=== PATIENT | female | born 1975 | race Caucasian/White ===

== ENCOUNTER → 2021-01-25 08:42 | Outpatient (CLI) | payer OTHER, SELFPAY ==
--- NOTE | 2021-01-25 09:44 | MRI_ITS ---
EXAM: MR Cervical Spine Without Intravenous Contrast CLINICAL INDICATION: 45 years old, Female; pain, disc degen TECHNIQUE: Multiplanar and multisequence MR images of the cervical spine without intravenous contrast were performed. This report was created using Osmopure report Mo-DV technology. COMPARISON: None. FINDINGS: Vertebrae: Unremarkable. Normal vertebral bodies and posterior elements. Normal alignment. Normal craniocervical junction and cervicothoracic junction. No spondylolisthesis. There is preservation of the normal cervical lordosis. Spinal cord: Unremarkable in signal and morphology. Soft tissues: Unremarkable. No prevertebral soft tissue swelling. Lymph nodes: Unremarkable. There is no cervical adenopathy. DISCS/SPINAL CANAL/NEURAL FORAMINA: C2-C3: Unremarkable. Normal disc height and morphology. Normal spinal canal and neuroforamina. C3-C4: Unremarkable. Normal disc height and morphology. Normal spinal canal and neuroforamina. C4-C5: Unremarkable. Normal disc height and morphology. Normal spinal canal and neuroforamina. C5-C6: Unremarkable. Normal disc height and morphology. Normal spinal canal and neuroforamina. C6-C7: Right paracentral disc protrusion at C6-C7 causing ventral effacement of the thecal sac but no significant stenosis. C7-T1: Unremarkable. Normal disc height and morphology. Normal spinal canal and neuroforamina. MRI/Spine Cervical (Routine) IMPRESSION: Right paracentral disc protrusion at C6-C7 causing ventral effacement of the thecal sac but no significant stenosis. Electronically Signed: Geovanny Eng MD at 2:41 EDT Tel , Service support ,
== END ==
PROVIDERS: PCP Family Medicine; Referring Provider Orthopaedic Surgery; Visit Provider Orthopaedic Surgery
DX: M50.30 Other cervical disc degeneration, unspecified cervical region (principal)
CPT/HCPCS: 72141

== ENCOUNTER 2021-02-25 10:47 | Observation (INO) | payer OTHER, SELFPAY ==
--- NOTE | 2021-02-14 07:35 | EKG12_ITS ---
Test Reason : PRE OP Blood Pressure : / mmHG Vent. Rate : 069 BPM Atrial Rate : 069 BPM P-R Int : 142 ms QRS Dur : 074 ms QT Int : 390 ms P-R-T Axes : 060 065 044 degrees QTc Int : 417 ms Normal sinus rhythm Low voltage QRS Borderline ECG Confirmed by ISAAC GIL, ANNE ([id number]), business editor TORY MELLO ([id number]) on 02/17/2021 11:13:51 AM Referred By: Khanh Malone Confirmed By:ANNE GRAY MD
[2021-02-14 08:18] LABS: Absolute Lymphocyte Count 1.39 X10^3/uL (0.83-4.51); Absolute Neutrophil Count 3.3 X10^3/uL (2.0-7.7); Basophil# 0.02 X10^3/uL; Basophil% 0.4 % (0-1); Eosinophil# 0.14 X10^3/uL; Eosinophils% 2.6 % (0-5); Hematocrit 36.3 % (37-47); Lymphocyte # 1.39 X10^3/ul (0.83-4.51); Lymphocyte % 25.3 % (19-41); Mean Corp Hgb Conc 33.1 g/dL (32-36); Mean Corpuscular Hgb 30.2 pg (27.0-32.0); Mean Corpuscular Volume 91.2 fL (81-99); Mean Platelet Vol. 9.9 fl (6.2-12.0); Monocyte% 10.9 % (0-10); NRBC Flagged by Analyzer 0 % (0-5); Neutrophil # 3.33 X10^3/uL (2.7-7.7); Neutrophil % 60.6 % (47-70); Platelet Count 253 K/mm3 (150-450); RBC Distribution Width CV 13.8 % (11.6-14.6); RBC Distribution Width SD 45.9 fl (35.1-43.9); Red Blood Count 3.98 M/mm3 (4.2-5.4); White Blood Count 5.5 K/mm3 (4.4-11.0)
[2021-02-14 08:45] LABS: Magnesium 2.2 mg/dL (1.6-2.6)
[2021-02-14 08:49] LABS: Anion Gap 3 (5-15); BUN 10 mg/dL (7-18); BUN/Creat Ratio 12.3 RATIO (10-20); Calcium,Total 9.1 mg/dL (8.5-10.1); Chloride 106 mmol/L (98-107); Creatinine, Serum 0.81 mg/dL (0.55-1.02); EST Glomerular Filtration Rate 81 mL/min (>60); Est Glom Filt Rate - Afr Amer 99 mL/min (>60); Glucose 75 mg/dL (74-106); Potassium 4.1 mmol/L (3.5-5.1); Sodium Level 138 mmol/L (136-145)
[2021-02-14 09:27] LABS: HIV - WCH Non-Reactive (Nonreactive); Hepatitis B Surface Antibody Non-Reactive; Hepatitis C Antibody Non-Reactive (Nonreactive)
[2021-02-15 08:39] LABS: Hepatitis A AB, Total Negative (Negative)
--- NOTE | 2021-02-24 14:00 | HP.PCM_ITS ---
History and Physical Date of Admission: 02/25/21 [facility] [id number] [phone] OFFICE VISITDate of Service: 01/08/21 MR#:[id number]:[id number]: MIKE CHEN ARep #:[id number]:[id number] Provider:Dr. Khanh Malone, Age/Sex: 45/F [place] [place] Intake Visit Reasons: Spine pain Allergies No Known Allergies Allergy (Unverified 01/08/21 08:28) Medications estradiol 2 mg tablet tablet PO 01/08/21 [History Confirmed 01/08/21] flaxseed oil 1,000 mg capsule 1,000 mg PO DAILY 01/08/21 [History Confirmed 01/08/21] PFSH Surgical History (Updated 01/08/21 @ 08:29 by Yanely Chapa) Hx of hysterectomy Family History (Updated 01/08/21 @ 08:29 by Yanely Chapa) Sister Hypertension Father Cancer Myocardial infarction HPI Spine pain Details: Parts of this documentation were recorded by a scribe, this documentation accurately reflects the service provided and the decisions made by me, Dr. Khanh Malone, 01/08/21 0822. MIKE CHEN is a 45 year old F NEW patient here today for cervical spine pain that she has had for about 3-4 months. Denies any injury. She states that she has generalized lower cervical spine pain in between her shoulder blades and this pain radiates into her BL arms into the hands and the pain is worse on the right side. She does have numbness and tingling of the left arm at times and states this is from the left elbow into the 4th and 5th fingers which may be a different problem. She states that she has had physician assistant primary care for the last 2 months which is not effective. She has been taking NSAIDs which are effective for a short period of time. Denies the use of Tylenol States that she has also done some PT. She has increased pain with cervical rotation and feels that she has decreased cervical rotation. Mike states that the neck pain started 3 or 4 months ago insidiously is actually gotten worse and not better. At times it is incapacitating. Once bad the pain is an 8/10. When it is good it is a 4/10. As above the right arm is worse than the left. Overall her neck pain is worse than her arm pain. She denies any weakness. She denies any bowel or bladder dysfunction. She denies history of unexplained weight loss night fever sweats or chills. On examination she has excellent motor strength of all the major muscle groups of both upper extremities. She has 2+ triceps, biceps, and brachioradialis reflexes bilaterally. She has no long tract signs. Clonus is absent and Babinski's are downgoing. She has more pain with flexion of her cervical spine that she does extension. She has a negative Lhermitte sign. Plain x-rays demonstrate a decreased disc space at see 6 7 otherwise unremarkable. We'll order an MRI scan of the cervical spine particularly because she has been gradually getting worse rather than better. In addition when I see her next time to review the MRI scan of the cervical spine I will go ahead and see her for her low back. That will save them a separate trip. I will make further recommendations at that time. ROS ENT Reports neck pain Musc Denies arthralgias, Reports back pain, Denies joint swelling, Reports muscle weakness, Reports neck pain, Denies numbness, Reports radiating pain into limb, Denies stiffness and Denies tingling Skin/Breast Denies erythema, Denies lesions, Denies pruritus, Denies rash and Denies skin swelling Neuro No numbness and No tingling Coding Level of Care Code Off vis,new,level 3 Diagnoses DDD (degenerative disc disease), cervical M50.30 Cervical spine pain M54.2 Time Spent (min) 30 Assessment and Plan Assessment and Plan (1) DDD (degenerative disc disease), cervical
[2021-02-25] VITALS (11 sets, daily range): BP systolic 127–139; BP diastolic 69–84; PULSE 81–91; RESP 16–18; TEMP 36.3–36.8; O2SAT 96–100; BMI 24.9
--- NOTE | 2021-02-25 | DISC_PTH ---
PATIENT: MIKE CHEN LOC: MS2 U#:[id number] AGE/SX: 45/F [place] [facility] [place]: Dr. Kelly Slaughter MD : 1975 BED: 1 DIS: 02/26/2021 SPEC #: [id number] RECD: 02/25/21 13:32 STATUS: SO ERIC #: [id number] APOORVA: 02/25/21 00:[address]: Khanh Malone DEPT: SURGICAL PATHOLOGY RECD BY: Hossein Russell ENTERED: 02/25/21 13:32 SP TYPE: DISC OTHR DR: ANDRES Maradiaga Tissues: Intervertebral disc, NOS Procedures: Surgery Specimen Level III HEADER OPERATION: Anterior cervical fusion C6-7 PRE-OP DIAGNOSIS: Cervical degenerative disc disease TISSUE SUBMITTED: Cervical disc MICROSCOPIC DIAGNOSIS Intervertebral disc, C6-7, discectomy: Fragments of intervertebral disc with degenerative change. AM:cheryl 02/26/2021 MICROSCOPIC DESCRIPTION Slides are reviewed. GROSS DESCRIPTION Received in fixative is one container labeled with the patient's name and designated cervical disc. The specimen consists of multiple pieces of fatima-pink, indurated tissue that in aggregate measure 3 x 2.5 x 0.3 cm. The specimen is totally submitted in one cassette. / SJ:cheryl 02/25/21 TC:5 [facility]: [id number]
[2021-02-25] MEDS: Acetaminophen 500 MG Tablet 1000 MG PO (06:16)
[2021-02-25] MEDS: dexAMETHasone 10 MG/ML Vial 8 MG IV (06:17)
[2021-02-25] MEDS: Lactated Ringers 1,000 ML 15 ML IV ×2 (06:19→09:00)
[2021-02-25 06:26] LABS: Bedside Glucose 57 mg/dL (70-110)
[2021-02-25] MEDS: Cefazolin 2 GM in 0.9% Normal Saline 100 ML IV (07:28)
--- NOTE | 2021-02-25 07:58 | RAD_ITS ---
STUDY: X-RAY - CERVICAL SPINE REASON FOR EXAM: Female, 45 years old. IMAGE 3 TECHNIQUE: 1 view(s) of the cervical spine were obtained. COMPARISON: None FINDINGS: Single lateral view was obtained intraoperatively. The localization instrument is seen on the anterior aspect of the C6-C7 level. RAD/Spine 1 View Any Level IMPRESSION: The localization instrument is seen along the anterior aspect of the C6-C7 level. Electronically Signed: Misael Peters MD at 9:24 EST , Service support ,
--- NOTE | 2021-02-25 07:58 | RAD_ITS ---
STUDY: X-RAY - CERVICAL SPINE REASON FOR EXAM: Female, 45 years old. IMAGE 1 TECHNIQUE: 1 view(s) of the cervical spine were obtained. COMPARISON: None FINDINGS: The localization needle is seen overlying the anterior superior aspect of the C7 vertebrae. RAD/Spine 1 View Any Level IMPRESSION: The localization needle is seen overlying the anterior superior aspect of the C7 vertebrae. Electronically Signed: Misael Peters MD at 12:45 EST , Service support ,
[2021-02-25] MEDS: THROMBIN (RECOMBINANT) 20,000 UNIT VIAL 20000 UNIT TOPICAL (08:30)
[2021-02-25] MEDS: Heparin 10,000 UNITS/10 ML Vial 10000 UNITS (08:30)
--- NOTE | 2021-02-25 08:50 | RAD_ITS ---
STUDY: X-RAY - CERVICAL SPINE REASON FOR EXAM: Female, 45 years old. IMAGE 2 TECHNIQUE: 1 view(s) of the cervical spine were obtained. COMPARISON: None FINDINGS: Intraoperative imaging was provided. The localization needle is seen along the anterior aspect of the C7-T1 disc space level. RAD/Spine 1 View Any Level IMPRESSION: The localization needle is seen along the anterior aspect of the C7-T1 disc space level. Electronically Signed: Misael Peters MD at 9:23 EST , Service support ,
--- NOTE | 2021-02-25 09:21 | RAD_ITS ---
STUDY: X-RAY - CERVICAL SPINE REASON FOR EXAM: Female, 45 years old. ANTERIOR CERVICAL FUSION C6-C7 RIGHT TECHNIQUE: 1 view(s) of the cervical spine were obtained. COMPARISON: 01/08/2021 FINDINGS: Intraoperative film demonstrates patient is status post interval anterior cervical discectomy and fusion at C6-C7 with anatomic alignment with a surgical drain and endotracheal tube.. RAD/Spine 1 View Any Level IMPRESSION: Interval anterior cervical discectomy and fusion at C6/C7. Electronically Signed: Rodrick Lubin MD at 10:45 EST Tel , Service support ,
--- NOTE | 2021-02-25 10:57 | PCM.OPRPT ---
Report of Operation Date of Procedure: 02/25/21 Description of Surgical Findings:: Preoperative diagnosis: Right C7 radiculopathy secondary to herniated disc C6-7 Postoperative diagnosis: The same Procedures: #1 anterior cervical fusion C6-7 CPT code 01681 #2 application of titanium spine plate C6-7 CPT code 22907/59 #3 insertion of cage C6-7 CPT code 16987 this procedure is separate from the spine plate hence the modifier 59 above Surgeon: Dr. Malone real estate legal assistant: Beatrice OSPINA Anesthesia: General endotracheal anesthesia administered by [facility] EBL: Less than 25 cc Bone marrow aspirate: 60 cc from right iliac crest Drains: 1/4 inch Sunni Complications: None Procedure: Patient was taken to the OR where she was placed in the supine position on the operating table. General endotracheal anesthesia was administered. A Bowser catheter was inserted. Neuro monitoring placed their leads and the patient. The neck and right iliac crest were then prepped and draped in standard fashion. A small puncture incision using a 15 blade a [employer] needle was inserted into the right ASIS tamped into place and 60 cc of bone marrow aspirate were obtained. This was handed off to the instrumentation and controls technician used for special centrifuge to separate the stem cells from all the rest of the cells. The stem cells were concentrated about 10 times normal. These were given back to us. Noted prior to surgery I took a preoperative x-ray and marked the skin with a small laceration using the end of a needle to where the incision would start. Then started the incision at this point and will curved in line with longer's lines to the edge of the right sternal cleidomastoid muscle. Subcutaneous tissues were incised length of skin incision. I then elevated the subcutaneous tissues off of the platysma cephalad and caudad. Self-retaining retractors were then put in place on split the platysma longitudinally in line with its fibers and began developing the fascial planes. First I opened the superficial cervical fascia followed by the opening of the pretracheal fascia. In this fashion I was able to retract the strap muscles and midline structures to the left the carotid sheath to the right. I then encountered the precervical fascia this was opened in the midline with cautery a needle was put in place to angelina the space and an intraoperative x-ray was taken. Note that the x-ray was at C7-T1 we simply moved up 1 level remarked that with the needle and took another x-ray that demonstrated we were then at C6-7. This was confirmed by radiology. Then cauterized the longus coli muscles on either side along the edge and elevated them gently off the disc base the self-retaining supervisor belt and link assembly retractors were then put in place side to side and up and down. This gave me good access to the C6-7 disc. Using a 15 blade I remove the anterior annulus and then removed more nucleus from within the disc space all the way back to the posterior part of the annulus. This was done with pituitary rongeurs. I then used curettes to remove more cartilage out of the space and elevate cartilage off of the endplates on both sides. Note that every 10 or 15 is in the course of the case we irrigated thoroughly with sterile saline to prevent infection. An intervertebral body distractor was then placed on the left side opening the right side this can be more axis to the uncinate process on the right. Once all cartilage in the area was removed with a curette I used a ethan bur to start bur in the uncinate process until it was a very thin shell. I then used curettes to remove the uncinate process off of the base of the nerve root and then used a nerve hook and I was able to sweep the area and a small piece of ruptured disc came out. This completely decompressed the base of the C7 nerve root. This was even confirmed with EMG from the neuro monitoring. The EMG was abnormal prior to surgery and as soon as that was removed and the foramen open the EMG became normal again for the right C7 nerve. This was good evidence as to the decompression. I then removed all remaining cartilage off both endplates I used the bur to flatten the space somewhat particularly anteriorly. We then used trials we started with a 6 followed by 7 and finally we settled on 8 mm small cage's cage was a 16 x 14 deep and 8 mm high. It had a 7 degree lordosis built-in. We then filled the cage with spongy DBM. This was then soaked in patient's concentrated stem cells and it was then tamped into place with anesthesia plan a little bit on the head and it was countersunk a couple of millimeters. We then placed a 26 mm plate between 6 and 7 and while holding it in place we were able to use the awl to punch the first hole followed by insertion of a 14 mm long screw. This was done at the other 3 points with 2 screws into C6 and 2 into C7. Note that these had self locking mechanisms as this screw was tightened. Thorough irrigation was carried out 1 last time. Then placed the amniotic membrane directly over the top of the plate to prevent his adhesions to the surrounding structures. 1/4 inch Kingsford drain was then inserted. The platysma was used closed using running 5-0 Vicryl suture followed by closure of subcutaneous tissues with 5-0 Vicryl in interrupted fashion. This approximated the skin edges and we did not need to put outside stitches in place. A safety pin was placed through the drain to prevent a suction into the wound and sterile dressings were applied. The patient then recovered in the OR she was moved to her hospital bed and taken to recovery in satisfactory condition. This is the end of operative summary on Lolis Malcolm. This is Dr. Malone dictating.
--- NOTE | 2021-02-25 13:12 | PCS.PANDOC ---
PANDEMIC DOCUMENTATION INITIATED: Date: 11/25/2020 Time: 190
[2021-02-25] MEDS: Lactated Ringers 1,000 ML 100 ML IV (13:44)
[2021-02-25] MEDS: Cefazolin 1 GM/50 ML BAG IV (16:10)
[2021-02-25] MEDS: 0.9% NaCl Peripheral Flush Adult/Peds IV (16:10)
[2021-02-25] MEDS: dexAMETHasone 4 MG/ML Vial IV ×2 (16:10→20:05)
[2021-02-25] MEDS: traMADol 50 MG Tablet PO (16:11)
--- NOTE | 2021-02-25 18:28 | PCM.PN.HOSP ---
Subjective Subjective Patient was seen as a hospitalist consult from the admitting surgeon request, Dr. Malone. This 45-year-old female with history of cervical radiculopathy pain for about 3 to 4 months. Her pain radiates from lower neck to both arms mainly on the right arm. She also had numbness/tingling of the left arm, sometimes from left elbow to fourth and fifth finger. She has been taking NSAIDs with intermittent relief of pain. Her preoperative diagnosis right C7 radiculopathy secondary to herniated disc at C6-7. Today she had surgery done by Dr. Malone. She denies history of hypertension, diabetes mellitus, chronic cardiopulmonary disease, digestive disease or endocrine issues. She is a non-smoker. She is not alcoholic. Family history is positive of hypertension in her sister and her father has LA and cancer. She is on contraceptive pill estradiol. Rest 12 ROS negative except as mentioned in HPI. Denies chest pain, shortness of breath. She has mild soreness in the neck perioperative region. Radicular pain in right arm has improved. Objective Data Objective Data Vital Signs: Vital Signs Temp Pulse Resp BP Pulse Ox 97.9 F 91 18 130/82 H 98 02/25/21 16:25 02/25/21 16:25 02/25/21 16:25 02/25/21 16:25 02/25/21 16:25 Oxygen Delivery Method Room Air Weight: 158 lb 15.253 oz Body Mass Index (BMI) 24.9 Intake & Output: Intake and Output for Last 24 Hours 02/23/21 02/24/21 02/25/21 23:59 23:59 23:59 Intake Total 1214.5 / 1214.5 Output Total 1500 / 1500 Balance -285.5 / -285.5 Lab / Micro Data Result Diagrams: 02/14/21 07:54 02/14/21 07:54 Labs: Laboratory Results - last 24 hr 02/25/21 06:03: POC Glucose 57 L Micro: Microbiology 02/24/21 08:33 Interface Orders SARS-CoV-2 Antigen (Rapid) - Final 02/14/21 07:54 Swab (Method) Nasal Screen MRSA/MSSA - Final Radiography Diagnostic Testing: Radiology Impression Spine X-Ray 02/25/21 07:58 IMPRESSION: The localization needle is seen overlying the anterior superior aspect of the C7 vertebrae. Electronically Signed: Misael Peters MD at 12:45 EST , Service support , Spine X-Ray 02/25/21 07:58 IMPRESSION: The localization instrument is seen along the anterior aspect of the C6-C7 level. Electronically Signed: Misael Peters MD at 9:24 EST , Service support , Spine X-Ray 02/25/21 08:50 IMPRESSION: The localization needle is seen along the anterior aspect of the C7-T1 disc space level. Electronically Signed: Misael Peters MD at 9:23 EST , Service support , Spine X-Ray 02/25/21 09:21 IMPRESSION: Interval anterior cervical discectomy and fusion at C6/C7. Electronically Signed: Rodrick Lubin MD at 10:45 EST Tel , Service support , Physical Exam Narrative General: Alert, Oriented x3, Cooperative HEENT: Atraumatic, PERRLA, EOMI, Normocephalic Oral: No Gingival or Mucosal Lesions/ Ulcerations Neck: Neck in cervical collar. Surgical dressing is dry over right anterior lateral neck. Lungs: Air entry equal in bilateral lung bases. No crepitation/rhonchi Cardiovascular: Regular rate, Regular Rhythm, Normal S1, Normal S2, No murmurs Abdomen: Bowel Sounds Present, Soft, Non Tender, Non-Distended : No renal angle tenderness. No suprapubic tenderness. Extremities: No edema, Capillary Refill Less than 3 Seconds Skin: No rashes, No breakdown Musculoskeletal: Muscle strength of hands and forearms are 5/5. Neurological: Cranial nerves II-XII grossly intact, DTR 2+/4. Psych/Mental Status: Normal Affect, Appropriate. Assessment & Plan Assessment/Plan (1) Herniated nucleus pulposus, C6-7 right: PLAN: 1. Right C7 radiculopathy secondary to herniated disc C6-7: Patient had anterior cervical fusion 6 7, application of titanium spine plate C6-7 and insertion of cage C6-7. Patient had surgery under general endotracheal anesthesia, TIVA. On pain control with tramadol and oxycodone. Blood pressure is normal. Patient on cefazolin as perioperative antibiotic. On dexamethasone 2 mg IV every 6 hourly. 2. Perioperative bowel and bladder care: Patient has Bowser catheter. Urine is clear. Patient denies history of recurrent UTI. Will remove Bowser catheter tomorrow a.m. Patient is on empirically stool softeners, senna S. 3. VTE prophylaxis: Bilateral SCDs. Charges/Coding Visit Charges Inpatient E&M: 62035 Init Hosp L2
[2021-02-25] MEDS: oxyCODONE 5 MG Tablet PO (20:05)
[2021-02-25] MEDS: Senna/Docusate Sodium 1 Tablet 2 TABLET PO (20:06)
[2021-02-26] MEDS: Lactated Ringers 1,000 ML 100 ML IV ×2 (00:12→01:55)
[2021-02-26] MEDS: Cefazolin 1 GM/50 ML BAG IV (00:31)
[2021-02-26] MEDS: traMADol 50 MG Tablet PO (01:49)
[2021-02-26] MEDS: dexAMETHasone 4 MG/ML Vial 2 MG IV ×2 (01:50→06:43)
[2021-02-26] MEDS: 0.9% NaCl Peripheral Flush Adult/Peds IV ×2 (01:50→06:43)
[2021-02-26 01:57] VITALS: BP 118/70; PULSE 84; RESP 18; TEMP 36.7; O2SAT 98
[2021-02-26] MEDS: oxyCODONE 5 MG Tablet PO (06:47)
[2021-02-26 06:48] VITALS: BP 125/76; PULSE 84; RESP 18; TEMP 36.6; O2SAT 96
--- NOTE | 2021-02-26 07:49 | DCINST_ITS ---
Discharge Instructions Follow Up Care Test Results: Test results from this visit will be discussed in further detail at your follow-up appointment, if applicable. Discharge Plan Admission Admit Date/Time: 02/25/21 10:47 Attending Provider: Kelly Slaughter Primary Care Provider: Samantha Galvez NP Consulting Providers: Cristiane Martínez ; Amparo Ramírez ; Aris Wang ; Hortensia Jacobs ; Hever He ; Ton Chow ; Robby Lyons ; Nikunj Vargas ; Jaye Vargas ; Ho Rodriguez ; Keo Mendoza ; Leonel Velazquez ; Isabel Reyes ; Guy Herrera ; Kelly Slaughter ; Ilia Whatley ; Dmitri Hernandez ; Alli Gonsalez ; Santo Schrader ; Candice Arellano [employer] DEVELOPER ; Kelsey Greene ; Nadege Dunlap NP ; Guy Malcolm NP ; Yoana Somers ; Elisabeth Jones Discharge Orders/Prescriptions Prescriptions: No Action estradiol 2 mg tablet 1 tablet PO DAILY RF: 0 flaxseed oil [Veblen-3 Flaxseed Oil] 1,000 mg capsule 1,000 mg PO DAILY RF: 0 calcium 500 mg Tablet 500 mg PO DAILY RF: 0 Barley Green 1 tsp PO/SL DAILY RF: 0 Referrals / Follow Up: Samantha Galvez [employer] DEVELOPER, [employer] DEVELOPER-C [Primary Care Provider] - Disposition Disposition (needs filled in before D/C Order can be placed): Home, Self Care
--- NOTE | 2021-02-26 07:50 | DS.PCM_ITS ---
Providers Date of Admission: 02/25/21 Primary Care Physician: ANDRES Maradiaga Consultations 02/25/21 12:51 Consult: Hospitalist Routine Consulting Provider: Angela Tee Reason for Consult: med management EMERGENT Consult: No MD Notified: Yes Date Notified: 02/25/21 Time Notified: 15:00 Method of Notification: Text Reason For Visit: ANTERIOR CERVICAL FUSION C6-7 RIGHT Diagnosis Discharge Diagnosis (1) Herniated nucleus pulposus, C6-7 right: Status: Acute Code(s): M50.223 - Other cervical disc displacement at C6-C7 level Medications at Discharge Home Medications estradiol 2 mg tablet 1 tablet PO DAILY 01/08/21 flaxseed oil 1,000 mg capsule 1,000 mg PO DAILY 01/08/21 Barley Green 1 tsp PO/SL DAILY 02/13/21 calcium 500 mg PO DAILY 02/13/21 Hospital Course Summary of Care Provided Hospital Course: Having a surgery that I performed at the C6-7 level.Yun was admitted yesterday . She underwent anterior cervical fusion at the C6-7 level. This morning she reports that her arm pain is completely resolved and her strength is back in her right arm. Her voice is clear. We change her dressing and remove the drain. The incision is dry and healing well. I gave her directions regarding her activities. She is not to lift more than 15 pounds for now. She will ride in a car home but other than that will be in a car until she comes to see me in 2 weeks. If she has any problems when home she is to contact my office so we can make her an appointment. I will see her again at follow-up. She is discharged to home. Weight / BMI Weight Weight: 158 lb 15.253 oz Body Mass Index (BMI) 24.9 ABG / Lab / Microbiology Data Result Diagrams: 02/14/21 07:54 02/14/21 07:54 Microbiology: Microbiology 02/24/21 08:33 Interface Orders SARS-CoV-2 Antigen (Rapid) - Final 02/14/21 07:54 Swab (Method) Nasal Screen MRSA/MSSA - Final Radiography Diagnostic Testing: Radiology Impression Spine X-Ray 02/25/21 07:58 IMPRESSION: The localization needle is seen overlying the anterior superior aspect of the C7 vertebrae. Electronically Signed: Misael Peters MD at 12:45 EST , Service support , Spine X-Ray 02/25/21 07:58 IMPRESSION: The localization instrument is seen along the anterior aspect of the C6-C7 level. Electronically Signed: Misael Peters MD at 9:24 EST , Service support , Spine X-Ray 02/25/21 08:50 IMPRESSION: The localization needle is seen along the anterior aspect of the C7-T1 disc space level. Electronically Signed: Misael Peters MD at 9:23 EST , Service support , Spine X-Ray 02/25/21 09:21 IMPRESSION: Interval anterior cervical discectomy and fusion at C6/C7. Electronically Signed: Rodrick Lubin MD at 10:45 EST Tel , Service support , Meaningful Use Info Meaningful Use Diagnoses (Choose all that apply): None applicable Discharge Plan Admission Admit Date/Time: 02/25/21 10:47 Attending Provider: Kelly Slaughter Primary Care Provider: Samantha Galvez NP Consulting Providers: Cristiane Martínez ; Amparo Ramírez ; Aris Wang ; Hortensia Kruger i ; Hever He ; Ton Chow ; Robby Lyons ; Nikunj Vargas ; Jaye Vargas ; Ho Rodriguez ; Keo Mendoza ; Leonel Velazquez ; Isabel Reyes ; Guy Herrera ; Kelly Slaughter ; Ilia Whatley ; Dmitri Hernandez ; Alli Gonsalez ; Santo Schrader ; Candice Arellano [employer] ; Kelsey Greene ; Nadege Steiner [employer] ; Guy Malcolm [employer] ; Yoana Somers PA ; Elisabeth Jones Discharge Orders/Prescriptions Prescriptions: No Action estradiol 2 mg tablet 1 tablet PO DAILY RF: 0 flaxseed oil [[place]-3 Flaxseed Oil] 1,000 mg capsule 1,000 mg PO DAILY RF: 0 calcium 500 mg Tablet 500 mg PO DAILY RF: 0 Barley Green 1 tsp PO/SL DAILY RF: 0 Referrals / Follow Up: Samantha Galvez NP, [employer]-C [Primary Care Provider] - Disposition Disposition (needs filled in before D/C Order can be placed): Home, Self Care
[2021-02-26 09:31] VITALS: BP 123/74; PULSE 81; RESP 16; TEMP 35.7; O2SAT 96
[2021-02-26] MEDS: Senna/Docusate Sodium 1 Tablet 2 TABLET PO (09:43)
[2021-02-26] MEDS: Estradiol 1 MG Tablet 2 MG PO (09:43)
--- NOTE | 2021-02-26 10:40 | CASEMGMT ---
RN CM Face to Face with patient for initial transition planning/care coordination assessment. RN CM introduced self and role at [facility]. Patient lying in bed, alert and oriented, at bedside. Patient willing to participate in assessment and is able to answer all questions appropriately. Care providers, pharmacy, and demographics verified. Patient wishes to discharge home, denies need for home health at this time. Patient states she has no further needs or concerns at this time. CM to follow for discharge planning needs that may arise. PCP: Samantha Galvez Specialists: Faisal spinal surgeon Preferred Pharmacy: [facility] retail at discharge Insurance: [employer] Prescription Benefit: yes Living Will/HPOA: yes, Ho Malcolm LNOK: Living Arrangements: Patient lives with in a 2 story home with ramp to enter. Bed and bath on first floor. Patient states she was independent at home. Transportation: Driving service or [facility] van. DME/HHC: patient denies previous HHC or SNF. Denies need for DME Disposition Plan: Patient to discharge home with family support and follow-up plans in place. Ninfa MENDOZA, RN, CM
--- NOTE | 2021-02-26 10:46 | PCM.PN.HOSP ---
Documented by User: Geovanny OSPINA 02/26/21 10:52 Subjective Subjective Patient is a 45-year-old female comfortably resting in bed status post cervical spine fusion, alert and oriented x3. Denies chest pain, shortness of breath, palpitations, hemoptysis, sputum production, fever, chills, N/V/D. Does not appear in acute distress. Objective Data Objective Data Vital Signs: Vital Signs Temp Pulse Resp BP Pulse Ox 96.3 F L 81 16 123/74 H 96 02/26/21 09:31 02/26/21 09:31 02/26/21 09:31 02/26/21 09:31 02/26/21 09:31 Oxygen Delivery Method Room Air Weight: 158 lb 15.253 oz Body Mass Index (BMI) 24.9 Intake & Output: Intake and Output for Last 24 Hours 02/24/21 02/25/21 02/26/21 23:59 23:59 23:59 Intake Total 3254.5 / 4454.5 2536.67 / 2536.67 Output Total 2500 / 4600 3400 / 3400 Balance 754.5 / -145.5 -863.33 / -863.33 Lab / Micro Data Result Diagrams: 02/14/21 07:54 02/14/21 07:54 Micro: Microbiology 02/24/21 08:33 Interface Orders SARS-CoV-2 Antigen (Rapid) - Final 02/14/21 07:54 Swab (Method) Nasal Screen MRSA/MSSA - Final Radiography Diagnostic Testing: Radiology Impression Spine X-Ray 02/25/21 07:58 IMPRESSION: The localization needle is seen overlying the anterior superior aspect of the C7 vertebrae. Electronically Signed: Misael Peters MD at 12:45 EST , Service support , Spine X-Ray 02/25/21 09:21 IMPRESSION: Interval anterior cervical discectomy and fusion at C6/C7. Electronically Signed: Rodrick Lubin MD at 10:45 EST Tel , Service support , Physical Exam Const alert, oriented x3 and no apparent distress HEENT head/scalp atraumatic and moist oral mucous membranes Head and Scalp: normocephalic Eyes PERRL, EOMs intact bilaterally and conjunctivae normal Neck no lymphadenopathy, supple and no JVD Resp normal respiratory effort, no retractions, no use of accessory muscles and clear to auscultation bilaterally Cardio regular rate, regular rhythm, no murmurs and no JVD GI normal to inspection, nondistended, normoactive bowel sounds, soft to palpation and non-tender Extremity normal to inspection, full ROM and no clubbing, cyanosis or edema Skin no rashes or lesions noted, no wounds, skin turgor normal and no jaundice Neuro CN's II-XII intact bilaterally Psych affect normal Assessment & Plan Assessment/Plan (1) Cervical spine pain: (2) DDD (degenerative disc disease), cervical: (3) Herniated nucleus pulposus, C6-7 right: PLAN: Patient is a 45-year-old female who presents the hospital medicine service on consult from Dr. Malone status post cervical spine fusion for right C7 radiculopathy secondary to herniated disc at C6-C7. Patient does not have any significant past medical history outside of radiculopathy and does not take any medications for chronic conditions. Patient is stable to return home. 1) perioperative bowel and bladder care Patient was placed on stool softeners, denies any difficulty with defecation. Patient has a Bowser catheter which is filled with clear urine. Denies history of recurrent UTI. Bowser catheter to be removed prior to discharge. 2) C6-C7 disk herniation with C7 radiculopathy Status post cervical spine fusion. Management per orthopedics. Patient seen by Geovanny Stearns PA-C, under the supervision of Dr. Slaughter. Documented by User: Dr. Kelly Slaughter MD 02/26/21 16:29 Objective Data Lab / Micro Data Result Diagrams: 02/14/21 07:54 02/14/21 07:54 Charges/Coding Addendum Addendum: Patient seen by Geovanny Stearns PA-C under my supervision Patient seen and examined. She was admitted for anterior cervical fusion due to cervical stenosis and radiculopathy. Hospitalist service was consulted for medical management. Patient has no complaints today and feels well. Pain is well controlled. Review of symptoms otherwise negative. She has remained hemodynamically stable. O/E: Const alert, oriented x3 and no apparent distress HEENT head/scalp atraumatic and moist oral mucous membranes Head and Scalp: normocephalic Eyes PERRL, EOMs intact bilaterally and conjunctivae normal Neck no lymphadenopathy, supple and no JVD Resp normal respiratory effort, no retractions, no use of accessory muscles and clear to auscultation bilaterally Cardio regular rate, regular rhythm, no murmurs and no JVD GI normal to inspection, nondistended, normoactive bowel sounds, soft to palpation and non-tender Extremity normal to inspection, full ROM and no clubbing, cyanosis or edema, dressing over surgical site on anterior neck Skin no rashes or lesions noted, no wounds, skin turgor normal and no jaundice Neuro CN's II-XII intact bilaterally Psych affect normal Today's postop day 1 for anterior cervical spine fusion from C7 vasculopathy due to herniated disc at C6-C7. Continue with current pain management with stool softeners as needed. Spine surgery on board. Patient stable from hospital standpoint. DVT prophylaxis SCDs Thank you for the courtesy of the consult. We will continue to follow with you. Rest as per Geovanny Stearns PA-C's note, which I have reviewed and endorsed. Visit Charges Inpatient E&M: 76333 Subs Hosp L2
== END 2021-02-26 11:35 | disposition home or self-care (01) ==
LOC: SDC 13:32 → MS2 13:32
PROVIDERS: Anesthesiology; Admitting Provider Orthopaedic Surgery; PCP Nurse Practitioner Family; Referring Provider Orthopaedic Surgery; Visit Provider Student in an Organized Health Care Education/Training Program
PROC: (CPT 22551; principal; 2021-02-25 07:00)
DX: M50.123 Cervical disc disorder at C6-C7 level with radiculopathy (principal); M47.22 Other spondylosis with radiculopathy, cervical region
CPT/HCPCS: 20931; 20938; 22551; 22845; 22853; 36415; 72020; 80048; 82962; 83735; 85025; 86703; 86706; 86708; 86803; 87081; 87426; 88304; 93005; 96361; 96365; 96366; 96375; 96376; 99218; 99251; C1713; C9803; J7120; A4216; G0378; G0463; J2405

== ENCOUNTER 2021-07-19 08:54 | Outpatient (CLI) | payer OTHER, SELFPAY ==
--- NOTE | 2021-07-19 08:55 | MRI_ITS ---
STUDY: MRI LUMBAR SPINE WITHOUT CONTRAST REASON FOR EXAM: Female, 46 years old. LBP, bilat leg and hip pain TECHNIQUE: Standardized fat and water weighted pulse sequences were obtained in the sagittal and axial planes. COMPARISON: Lumbar spine radiographs 06/13/2021. FINDINGS: T10-T11: (Sagittal only). Normal T10 inferior endplate. Minimal old anterior wedging of the upper T11 vertebral body. Mild disc space height narrowing. No ventral extradural defect. Normal central canal and bilateral intervertebral neural foramina. Small T10 and T11 benign vertebral body hemangiomas. T11-T12: (Sagittal only). Normal endplates. Mild disc space height narrowing. No ventral extra dural defect. Normal central canal and bilateral intervertebral neural foramina. T12-L1: (Sagittal only). Normal endplates. Normal disc height, hydration and morphology. No ventral extradural defect. Normal central canal and bilateral intervertebral neural foramina. Normal lumbar lordosis. There is no substantial scoliosis. Normal conus medullaris that terminates at the mid L1 vertebral body level. L1-2: Normal endplates. Normal disc height, hydration and morphology. Normal bilateral facet joints. Normal central canal and bilateral lateral recesses. Normal bilateral intervertebral neural foramina. L2-3: Normal endplates. Normal disc height, hydration and morphology. Normal bilateral facet joints. Normal central canal and bilateral lateral recesses. Normal bilateral intervertebral neural foramina. L3-4: Normal endplates. Normal disc height, hydration and morphology. Normal bilateral facet joints. Normal central canal and bilateral lateral recesses. Normal bilateral intervertebral neural foramina. Small L3 benign vertebral body hemangioma. L4-5: Normal endplates. Minimal disc space height narrowing. Normal facet joints. Capacious central canal. Normal bilateral lateral recesses. Normal bilateral intervertebral neural foramina. L5-S1: Normal endplates. Normal disc height, hydration and morphology. Mild right degenerative facet arthropathy. Normal left facet joint.. Normal central canal and bilateral lateral recesses. Normal bilateral intervertebral neural foramina. Small round S1 benign vertebral body hemangioma. Normal visualized sacral ala. Normal visualized paraspinous soft tissue structures. MRI/Spine Lumbar (Routine) IMPRESSION: No MRI evidence of lumbar extruded disc fragment, spinal stenosis or nerve root displacement. Electronically Signed: Santiago Solorio MD at 16:00 EDT ,
== END 2021-07-19 23:59 | disposition home or self-care (01) ==
LOC: MRI 08:55
PROVIDERS: PCP Nurse Practitioner Family; Referring Provider Orthopaedic Surgery; Visit Provider Orthopaedic Surgery
DX: M51.26 Other intervertebral disc displacement, lumbar region (principal)
CPT/HCPCS: 72148